=== PATIENT | male | born 1960 | race Caucasian/White ===

== ENCOUNTER 2019-08-05 18:45 | Emergency (ER) | payer OTHER ==
[~2019-08-05] VITALS: Ht 182.8 cm; Wt 84.4 kg
[2019-08-05] MEDS ORDERED: LIDOCAINE 1% INJ 20 ML 20 ML VIAL INJ ONE (19:15)
--- NOTE | 2019-08-05 19:17 | ED Upper Extremity ---
General Chief Complaint: Laceration Stated Complaint: HAND LACERATION Nursing Triage Note: PT. WAS CUTTING A HAM BONE AND HIS KNIFE SLIPPED AND HE NOW HAS A LACERATION ON THE PALM OFTHE LEFT HAND. THIS HAPPENED 6 HOURS AGO. PT. TRIED USING LIQUID SKIN BUT IT DID NOT WORK. SITE IS NOT BLEEDING AT THIS TIME. SITE HAS BEEN CLEANED. Nursing Sepsis Screen: No Definite Risk Source: patient History of Present Illness Date Seen by Provider: Aug 05, 2019 Time Seen by Provider: 19:17 Initial Comments 58-year-old male presenting to the emergency department after having ac cidentally cut into his left hand when he was cutting into a ham bone. He did this around 1 PM today and thought that he could try to manage it at home. He did several things to try to close the wound with a butterfly strips as well as liquid skin. However it kept opening and would not fully close. He finally decided to come to the emergency department. He also has not had a tetanus shot for more than 5 years. He denies any numbness or tingling in his hand. 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 Allergies and Home Medications Allergies Coded Allergies: No Known Drug Allergies (Unverified , 08/05/19) Home Medications Cephalexin 500 Mg Tablet, 500 MG PO TID Prescribed by: PRIETO SAHNI on 08/05/19 5650 Patient Home Medication List Home Medication List Reviewed: Yes Review of Systems Constitutional: No chills, No fever EENTM: no symptoms reported Respiratory: no symptoms reported Cardiovascular: no symptoms reported Gastrointestinal: no symptoms reported Genitourinary: no symptoms reported Musculoskeletal: see HPI Skin: see HPI Psychiatric/Neurological: Denies Numbness, Denies Paresthesia Past Ngurclz-Lrtsky-Cqeasv Hx Past Med/Social Hx: Reviewed Nursing Past Med/Soc Hx Patient Social History Recent Foreign Travel: No Contact w/Someone Who Travel: No Recent Infectious Disease Expo: No Recent Hopitalizations: No Physical Abuse: No Sexual Abuse: No Mistreated: No Fear: No Seasonal Allergies Seasonal Allergies: No Past Medical History Surgeries: No Respiratory: No Cardiac: Yes Hypertension Neurological: No Genitourinary: No Gastrointestinal: No Musculoskeletal: No Endocrine: No HEENT: No Cancer: No Psychosocial: No Integumentary: No Blood Disorders: No Physical Exam Vital Signs Vital Signs - First Documented 08/05/19 18:50 Temp 36.8 Pulse 91 Resp 18 B/P (MAP) 168/88 (114) Pulse Ox 98 O2 Delivery Room Air Capillary Refill : Less Than 3 Seconds Height, Weight, BMI Height: '" Weight: lbs. oz. kg; 25.00 BMI Method: General Appearance: WD/WN, no apparent distress Cardiovascular: normal peripheral pulses Hand: normal ROM, Left, laceration (left palm laceration), soft tissue tenderness (around the laceration) Neurologic/Tendon: normal sensation, normal motor functions, normal tendon functions Neurologic/Psychiatric: alert, normal mood/affect, oriented x 3 Skin: normal color, warm/dry Procedures/Interventions Wound Location: Upper Extremities (left palmar surface of hand) Wound Length (cm): 1.9 Wound's Depth, Shape: sub Q Wound Explored: clean Anesthesia: 1% Lidocaine Volume Anesthetic (ccs): 8 Suture: Ethlion Suture Size: 4-0 Number of Sutures: 7 Layer Closure?: 1 Sterile Dressing Applied?: Yes Progress After obtaining verbal consent from the patient the wound was anesthetized with 1% plain lidocaine. Then using chlorhexidine surgical soap and sterile water the wound was scrubbed and no foreign bodies were seen. The wound was then closed with approximating the wound edges using 4-0 Ethilon. A total of 7 simple interrupted stitches were placed. The patient tolerated this well without any immediate complication. Counseled on follow-up and return precautions. Advised to have the stitches removed in approximately 2 weeks or longer Progress/Results/Core Measures Results/Orders My Orders Orders - PRIETO SAHNI MD Lidocaine 1% Inj 20 Ml (Xylocaine 1% Inj (08/05/19 19:15) Dipht,Pertuss(Acell),Tet Adult (Boostrix (08/05/19 19:30) Cephalexin Capsule (Keflex Capsule) (08/05/19 23:45) Medications Given in ED Current Medications Medications Dose Ordered Sig/Rosa M Route Start Time Stop Time Status Last Admin Dose Admin Cephalexin HCl 500 mg ONCE ONCE PO 08/05/19 23:45 08/05/19 23:46 DC 08/05/19 23:51 500 MG Diphtheria/ Tetanus/Acell Pertussis 0.5 ml ONCE ONCE IM 08/05/19 19:30 08/05/19 19:31 DC 08/05/19 19:37 0.5 ML Lidocaine HCl 20 ml ONCE ONCE INJ 08/05/19 19:15 08/05/19 19:16 DC 08/05/19 19:36 20 ML Vital Signs/I&O 08/05/19 08/05/19 18:50 23:58 Temp 36.8 36.4 Pulse 91 88 Resp 18 16 B/P (MAP) 168/88 (114) 118/76 Pulse Ox 98 98 O2 Delivery Room Air Room Air Blood Pressure Mean: 114 Progress Progress Note : Progress Note Counseled on care and management. Surgical wound with stitches. Advised to take antibiotics since the wound had such a prolonged time of pain open as well as he had tried to close it with multiple things prior to coming to the ER. Departure Impression Primary Impression: Laceration of left palm Qualified Codes: S61.412A - Laceration without foreign body of left hand, initial encounter Disposition: HOME, SELF-CARE Condition: Stable Departure-Patient Inst. Decision time for Depature: 23:45 Referrals: GAYATRI NELSON DO (PCP/Family) Primary Care Physician Patient Instructions: Laceration Repair With Stitches (DC) Add. Discharge Instructions: Keep wound clean and dry for first 24 hours then may wash with soap and water but do not soak it. Apply antibiotic ointment and dressing, especially if you are going to have the wound get dirty. Follow up with clinic and have the stitches removed in about 2 weeks, or be seen sooner if signs of infection All discharge instructions reviewed with patient and/or family. Voiced understanding. Scripts Cephalexin (Cephalexin) 500 Mg Tablet 500 MG PO TID for 7 Days, #20 TAB 0 Refills Prov: PRIETO SAHNI MD 08/05/19 PRIETO SAHNI MD Aug 05, 2019 19:17
[2019-08-05] MEDS ORDERED: TETANUS,DIPTH,PERTUSS P/F (BOOSTRIX) 0.5 ML VIAL IM ONE (19:30)
[2019-08-05] MEDS ORDERED: CEPHALEXIN 250 MG (KEFLEX) CAP PO ONE (23:45)
[2019-08-05] MEDS ORDERED: CEPH500T PO (23:46)
[2019-08-05 23:58] VITALS: BP 118/76
== END 2019-08-05 23:58 | disposition home or self-care (01) ==
LOC: ER FS 18:47
DX: S61.412A Laceration without foreign body of left hand, initial encounter (principal); I10 Essential (primary) hypertension; Z23 Encounter for immunization; W26.0XXA Contact with knife, initial encounter
CPT/HCPCS: 90715

== ENCOUNTER 2021-02-21 18:02 | Emergency (ER) | payer BC ==
[~2021-02-21] VITALS: Ht 182 cm; Wt 85.0 kg
[~2021-02-21 18:02] MED LIST: CEPH500T PO
[2021-02-21 18:08] VITALS: BP 175/107
--- NOTE | 2021-02-21 18:15 | ED Back Pain ---
General Chief Complaint: Back Problems Stated Complaint: BACK PAIN Source of Information: Patient Exam Limitations: No Limitations History of Present Illness Date Seen by Provider: Feb 21, 2021 Time Seen by Provider: 18:10 Initial Comments Back pain for over 1 month since an injury occurred while at work Has seen his PCP- Dr Serrano shortly afterward and was given a "cortisone shot" and some percocet for pain NO history of back problems/ back surgery. Pain located center of low back and without radiation of pain or weakness. Worse w movement and bending Allergies and Home Medications Allergies Coded Allergies: No Known Drug Allergies (Unverified , 08/05/19) Home Medications Cephalexin 500 Mg Tablet, 500 MG PO TID Prescribed by: PRIETO SAHNI on 08/05/19 234 Cyclobenzaprine HCl 10 Mg Tablet, 10 MG PO Q8H PRN for SPASMS Prescribed by: GERALD ROBERTS on 02/21/211828 Prednisone 50 Mg Tab, 50 MG PO DAILY Prescribed by: GERALD ROBERTS on 02/21/211828 Patient Home Medication List Home Medication List Reviewed: Yes Review of Systems Constitutional: No dizziness, No fever, No malaise, No weakness Musculoskeletal: back pain, muscle pain, muscle stiffness; No neck pain Past Krjmcpk-Xndqbs-Ourpdo Hx Patient Social History Tobacco Use?: Yes Seasonal Allergies Seasonal Allergies: No Past Medical History Surgeries: No Respiratory: No Cardiac: Yes Hypertension Neurological: No Genitourinary: No Gastrointestinal: No Musculoskeletal: No Endocrine: No HEENT: No Cancer: No Psychosocial: No Integumentary: No Blood Disorders: No Physical Exam Vital Signs Vital Signs - First Documented 02/21/21 18:08 Temp 36.0 Pulse 82 Resp 20 B/P (MAP) 175/107 (129) Pulse Ox 96 O2 Delivery Room Air Capillary Refill : Height, Weight, BMI Height: '" Weight: lbs. oz. kg; 25.00 BMI Method: General Appearance: No Apparent Distress, WD/WN Cardiovascular: Regular Rate, Rhythm, No JVD Respiratory: Chest Non Tender, Lungs Clear Gastrointestinal: Non Tender, Soft Back: Normal Inspection, No CVA Tenderness, Decreased Range of Motion; No Muscle Spasm; Vertebral Tenderness (midline -interspinous L3-L4), Other (tenderness paraspinal ms- b/l lower lumbar) Extremity: Normal Capillary Refill, Non Tender Neurologic/Psychiatric: Alert, Oriented x3, No Motor/Sensory Deficits, Normal Mood/Affect; No Motor Weakness, No Sensory Deficit Procedures/Interventions Suture Size: 4-0 Progress/Results/Core Measures Results/Orders Vital Signs/I&O 02/21/21 18:08 Temp 36.0 Pulse 82 Resp 20 B/P (MAP) 175/107 (129) Pulse Ox 96 O2 Delivery Room Air Departure Impression Primary Impression: Lumbar sprain Qualified Codes: S33.5XXA - Sprain of ligaments of lumbar spine, initial encounter Disposition: HOME, SELF-CARE Condition: Stable Departure-Patient Inst. Decision time for Depature: 18:28 Referrals: GAYATRI SERRANO DO (PCP/Family) Primary Care Physician Patient Instructions: Back Muscle Strain (DC) Add. Discharge Instructions: See Dr Serrano next week to consider an MRI of your Lumbar spine Consider buying a TENS unit for your back (an electrical stimulation device) All discharge instructions reviewed with patient and/or family. Voiced understanding. Scripts Prednisone (Prednisone) 50 Mg Tab 50 MG PO DAILY, #7 TAB Prov: GERALD ROBERTS DO 02/21/21 Cyclobenzaprine HCl (Cyclobenzaprine HCl) 10 Mg Tablet 10 MG PO Q8H PRN for SPASMS, #20 TAB 0 Refills Prov: GERALD ROBERTS DO 02/21/21 GERALD ROBERTS DO Feb 21, 2021 18:15
[2021-02-21] MEDS ORDERED: CYCL10TA9 PO (18:29)
[2021-02-21] MEDS ORDERED: PRD50T PO (18:29)
== END 2021-02-21 18:36 | disposition home or self-care (01) ==
LOC: EDUNIT# 18:02 → ER FS 18:03
DX: S33.5XXA Sprain of ligaments of lumbar spine, initial encounter (principal); I10 Essential (primary) hypertension; X58.XXXA Exposure to other specified factors, initial encounter; Y99.0 Civilian activity done for income or pay

== ENCOUNTER → 2021-03-08 | Outpatient (CLI) | payer BC ==
[~2021-03-08] MED LIST changes: +CYCL10TA9 PO; +PRD50T PO
--- NOTE | 2021-03-08 17:01 | Diagnostic Imaging Report ---
PROCEDURE: MRI lumbar spine. TECHNIQUE: Multiplanar, multisequence MRI of the lumbar spine was performed without contrast. INDICATION: Low back pain. Acute injury two months ago. COMPARISON: None. FINDINGS: There are five lumbar-type vertebral bodies for the purposes of this report. Normal alignment. Vertebral body heights are preserved. No abnormal signal in the conus which terminates at L1. Normal morphology of the cauda equina. The visualized pelvis and paravertebral soft tissues are unremarkable. L1-L2: Normal. L2-L3: Mild annular disc bulging results in mild left lateral recess narrowing. There is also mild left neuroforaminal narrowing. No spinal canal narrowing. L3-L4: Mild annular disc bulging and ligamentous hypertrophy result in mild bilateral lateral recess and right neuroforaminal narrowing. No spinal canal narrowing. L4-L5: Annular disc bulge with left paracentral disc protrusion, ligamentous hypertrophy, and facet arthropathy result in severe left and moderate right lateral recess narrowing. No spinal canal narrowing. Mild bilateral neuroforaminal narrowing. L5-S1: Annular disc bulge and facet arthropathy result in moderate bilateral lateral recess narrowing. No spinal canal narrowing. Mild bilateral neuroforaminal narrowing. IMPRESSION: 1. Spondylotic changes result in severe left lateral recess narrowing at L4-L5. There is also moderate lateral recess narrowing bilaterally at L5-S1 and on the right at L4-L5. 2. No high-grade spinal canal stenosis. 3. No acute osseous findings. Dictated by: Dictated on workstation # [id number]
== END ==
LOC: RAD 12:44
PROVIDERS: ATTEND Emergency Medicine
DX: M47.816 Spondylosis without myelopathy or radiculopathy, lumbar region (principal); M48.061 Spinal stenosis, lumbar region without neurogenic claudication; M48.07 Spinal stenosis, lumbosacral region; S39.012A Strain of muscle, fascia and tendon of lower back, initial encounter
CPT/HCPCS: 72148

== ENCOUNTER 2021-03-27 16:55 | Emergency (ER) | payer BC ==
[~2021-03-27] VITALS: Ht 182 cm; Wt 80.0 kg
--- NOTE | 2021-03-27 17:19 | ED GU-Male ---
General Chief Complaint: Abdominal/GI Problems Stated Complaint: LLQ PAIN Nursing Triage Note: LEFT SIDED ABD/FLANK PAIN SINCE LAST PM. LAST BM AT 0100. History of Present Illness Date Seen by Provider: Mar 27, 2021 Time Seen by Provider: 17:15 Initial Comments 60-year-old male presents with left flank and left lower quadrant pain beginning last night while at work. Denies injury or trauma, denies previous similar types of pain. Does have a history of chronic back problems. Denies painful urination, frequent urination or blood in his urine. Denies history of kidney stones. Denies change in bowel pattern or habit, denies melena, constipation or diarrhea. Denies weight loss, fever or chills Allergies and Home Medications Allergies Coded Allergies: No Known Drug Allergies (Unverified , 08/05/19) Home Medications Cephalexin 500 Mg Tablet, 500 MG PO TID Prescribed by: PRIETO SAHNI on 08/05/19 2346 Cyclobenzaprine HCl 10 Mg Tablet, 10 MG PO Q8H PRN for SPASMS Prescribed by: GERALD ROBERTS on 02/21/21 182 Hydrocodone/Acetaminophen 1 Each Tablet, 1 EACH PO Q4H Prescribed by: GERALD ROBERTS on 03/27/21 175 Ibuprofen 800 Mg Tablet, 800 MG PO Q8H PRN for PAIN Prescribed by: GERALD ROBERTS on 03/27/21 175 Prednisone 50 Mg Tab, 50 MG PO DAILY Prescribed by: GERALD ROBERTS on 02/21/21 182 Tamsulosin HCl 0.4 Mg Cap, 0.4 MG PO DAILY Prescribed by: GERALD ROBERTS on 03/27/21 175 Patient Home Medication List Home Medication List Reviewed: Yes Review of Systems Review of Systems Constitutional: No fever, No malaise, No weakness Respiratory: no symptoms reported Cardiovascular: no symptoms reported Gastrointestinal: LLQ, abdominal pain; No constipation, No diarrhea, No loss of appetite, No nausea, No vomiting Genitourinary: see HPI; denies burning, denies dysuria, denies frequency; flank pain Musculoskeletal: No back pain, No muscle pain Skin: No change in color, No lesions, No lumps, No rash Past Fsgqubj-Rbosno-Evecsl Hx Patient Social History Tobacco Use?: No Use of E-Cig and/or Vaping dev: No Substance use?: No Alcohol Use?: No Pt feels they are or have been: No Seasonal Allergies Seasonal Allergies: No Past Medical History Surgeries: No Respiratory: No Cardiac: Yes Hypertension Neurological: No Genitourinary: No Gastrointestinal: No Musculoskeletal: No Endocrine: No HEENT: No Cancer: No Psychosocial: No Integumentary: No Blood Disorders: No Physical Exam Vital Signs Vital Signs - First Documented 03/27/21 17:00 Temp 37.2 Pulse 84 Resp 18 B/P (MAP) 146/90 (108) Pulse Ox 97 O2 Delivery Room Air Capillary Refill : Less Than 3 Seconds Height, Weight, BMI Height: '" Weight: lbs. oz. kg; 24.00 BMI Method: General Appearance: WD/WN, no apparent distress Cardiovascular: regular rate, rhythm, no edema Respiratory: chest non-tender, lungs clear, normal breath sounds Gastrointestinal: normal bowel sounds, soft, no organomegaly, no pulsatile mass; No distended, No guarding, No rebound; tenderness (LLQ), other (mild left flank tenderness without CVA TTP) Back: normal inspection, no CVA tenderness, no vertebral tenderness Procedures/Interventions Suture Size: 4-0 Progress/Results/Core Measures Suspected Sepsis SIRS Temperature: Pulse: 84 Respiratory Rate: 18 Laboratory Tests 03/27/21 17:15: White Blood Count 12.7H Blood Pressure 146 /90 Mean: 108 Laboratory Tests 03/27/21 17:15: Creatinine 1.26, Platelet Count 280, Total Bilirubin 0.6 Results/Orders Lab Results Laboratory Tests Test 03/27/21 17:02 03/27/21 17:15 Range/Units Urine Color YELLOW Urine Clarity CLEAR Urine pH 7.5 5-9 Urine Specific Ramona 1.020 1.016-1.022 Urine Protein NEGATIVE NEGATIVE Urine Glucose (UA) NEGATIVE NEGATIVE Urine Ketones NEGATIVE NEGATIVE Urine Nitrite NEGATIVE NEGATIVE Urine Bilirubin NEGATIVE NEGATIVE Urine Urobilinogen 0.2 < = 1.0 MG/DL Urine Leukocyte Esterase NEGATIVE NEGATIVE Urine RBC (Auto) NEGATIVE NEGATIVE Urine RBC 2-5 H /HPF Urine WBC RARE /HPF Urine Crystals NONE /LPF Urine Bacteria NEGATIVE /HPF Urine Casts NONE /LPF Urine Mucus NEGATIVE /LPF Urine Culture Indicated NO White Blood Count 12.7 H 4.3-11.0 10^3/uL Red Blood Count 4.62 4.30-5.52 10^6/uL Hemoglobin 14.3 13.3-17.7 g/dL Hematocrit 41 40-54 % Mean Corpuscular Volume 89 80-99 fL Mean Corpuscular Hemoglobin 31 25-34 pg Mean Corpuscular Hemoglobin Concent 35 32-36 g/dL Red Cell Distribution Width 13.1 10.0-14.5 % Platelet Count 280 130-400 10^3/uL Mean Platelet Volume 9.6 9.0-12.2 fL Immature Granulocyte % (Auto) 0 % Neutrophils (%) (Auto) 81 H 42-75 % Lymphocytes (%) (Auto) 10 L 12-44 % Monocytes (%) (Auto) 7 0-12 % Eosinophils (%) (Auto) 2 0-10 % Basophils (%) (Auto) 1 0-10 % Neutrophils # (Auto) 10.2 H 1.8-7.8 X 10^3 Lymphocytes # (Auto) 1.2 1.0-4.0 X 10^3 Monocytes # (Auto) 0.9 0.0-1.0 X 10^3 Eosinophils # (Auto) 0.3 0.0-0.3 10^3/uL Basophils # (Auto) 0.1 0.0-0.1 10^3/uL Immature Granulocyte # (Auto) 0.0 0.0-0.1 10^3/uL Sodium Level 141 135-145 MMOL/L Potassium Level 4.1 3.6-5.0 MMOL/L Chloride Level 105 98-107 MMOL/L Carbon Dioxide Level 24 21-32 MMOL/L Anion Gap 12 5-14 MMOL/L Blood Urea Nitrogen 22 H 7-18 MG/DL Creatinine 1.26 0.60-1.30 MG/DL Estimat Glomerular Filtration Rate 58 BUN/Creatinine Ratio 17 Glucose Level 133 H 70-105 MG/DL Calcium Level 9.1 8.5-10.1 MG/DL Corrected Calcium 9.0 8.5-10.1 MG/DL Total Bilirubin 0.6 0.1-1.0 MG/DL Aspartate Amino Transf (AST/SGOT) 21 5-34 U/L Alanine Aminotransferase (ALT/SGPT) 26 0-55 U/L Alkaline Phosphatase 85 40-136 U/L Total Protein 6.5 6.4-8.2 GM/DL Albumin 4.1 3.2-4.5 GM/DL My Orders Orders - GERALD ROBERTS DO Ed Iv/Invasive Line Start (03/27/21 17:18) Cbc With Automated Diff (03/27/21 17:18) Comprehensive Metabolic Panel (03/27/21 17:18) Urinalysis (03/27/21 17:18) Ct Abdomen/Pelvis Wo (03/27/21 17:30) Ns Iv 1000 Ml (Sodium Chloride 0.9%) (03/27/21 17:30) Ketorolac Injection (Toradol Injection) (03/27/21 17:30) Ns Iv 1000 Ml (Sodium Chloride 0.9%) (03/27/21 17:40) Ketorolac Injection (Toradol Injection) (03/27/21 17:40) Medications Given in ED Current Medications Medications Dose Ordered Sig/Rosa M Route Start Time Stop Time Status Last Admin Dose Admin Ketorolac Tromethamine 30 mg ONCE ONCE IVP 03/27/21 17:30 03/27/21 17:49 DC 03/27/21 17:41 30 MG Vital Signs/I&O 03/27/21 17:00 Temp 37.2 Pulse 84 Resp 18 B/P (MAP) 146/90 (108) Pulse Ox 97 O2 Delivery Room Air Capillary Refill : Less Than 3 Seconds Blood Pressure Mean: 108 Progress Note : Progress Note feeling a lot better after getting toradol IV discussed CT results, Rx meds, straining urine and f/u w Uro if not improving. Diagnostic Imaging Diagonstic Imaging: CT Comments MPRESSION: 1. 6.6 cm stone in the distal left ureter proximal to the UVJ with secondary moderate left hydroureteronephrosis. There is fat stranding about the left kidney likely reactive with polynephritis not excluded. Other incidental findings as above. Dictated on workstation # [id number] Dict: 03/27/21 1741 Trans: 03/27/21 1749 CV [id number] Interpreted by: HOSSEIN MARTIN MD Electronically signed by: Departure Impression Primary Impression: Ureterolithiasis Disposition: HOME, SELF-CARE Condition: Stable Departure-Patient Inst. Decision time for Depature: 18:04 Referrals: GAYATRI NELSON DO (PCP/Family) Primary Care Physician MARCIA RASMUSSEN MD Patient Instructions: How to Strain Your Urine, Kidney Stone Diet, Kidney Stones (DC) Add. Discharge Instructions: Call Dr Rasmussen if you are not getting any relief in 1 to 2 days. Take the medications as prescribed. Follow up in the ER if pain becomes intolerable Strain your urine to identify the stone and take it to your doctor in a zip lock All discharge instructions reviewed with patient and/or family. Voiced understanding. Scripts Hydrocodone/Acetaminophen (Hydrocodone-Acetamin 5-325 mg) 1 Each Tablet 1 EACH PO Q4H for Abdominal Pain, #20 TAB Prov: GERALD ROBERTS DO 03/27/21 Ibuprofen (Ibuprofen) 800 Mg Tablet 800 MG PO Q8H PRN for PAIN, #30 TAB 0 Refills Prov: GERALD ROBERTS DO 03/27/21 Tamsulosin HCl (Flomax) 0.4 Mg Cap 0.4 MG PO DAILY, #7 CAP Prov: GERALD ROBERTS DO 03/27/21 GERALD ROBERTS DO Mar 27, 2021 17:19
[2021-03-27] MEDS ORDERED: NS IV 1000 ML 1,000 ML IV SCH (17:30)
[2021-03-27] MEDS ORDERED: KETOROLAC 30 MG/ML VIAL IVP ONE (17:30)
[2021-03-27 17:33] LABS: BILIRUBIN,URINE NEGATIVE (NEGATIVE); CLARITY,URINE CLEAR; COLOR,URINE YELLOW; GLUCOSE, URINE (UA) NEGATIVE (NEGATIVE); KETONES,URINE NEGATIVE (NEGATIVE); LEUKOCYTE ESTERASE ,URINE NEGATIVE (NEGATIVE); NITRITE,URINE NEGATIVE (NEGATIVE); PH,URINE 7.5 (5-9); PROTEIN,URINE NEGATIVE (NEGATIVE)
[2021-03-27 17:40] LABS: BACTERIA,URINE NEGATIVE /HPF; WBC,URINE RARE /HPF
[2021-03-27] MEDS ORDERED: NS IV 1000 ML 1,000 ML ONE (17:40)
[2021-03-27] MEDS ORDERED: KETOROLAC 30 MG/ML VIAL ONE (17:40)
[2021-03-27 17:41] LABS: BASOPHILS % (AUTO) 1 % (0-10); EOSINOPHILS % (AUTO) 2 % (0-10); HEMATOCRIT 41 % (40-54); HEMOGLOBIN 14.3 g/dL (13.3-17.7); LYMPHOCYTES % (AUTO) 10 % (12-44); MEAN CORPUSCULAR HEMOGLOBIN 31 pg (25-34); MEAN CORPUSCULAR HGB CONC 35 g/dL (32-36); MEAN CORPUSCULAR VOLUME 89 fL (80-99); MEAN PLATELET VOLUME 9.6 fL (9.0-12.2); MONOCYTES % (AUTO) 7 % (0-12); NEUTROPHILS % (AUTO) 81 % (42-75); PLATELET COUNT 280 10^3/uL (130-400); WHITE BLOOD COUNT 12.7 10^3/uL (4.3-11.0)
[2021-03-27 17:42] LABS: BASOPHILS # (AUTO) 0.1 10^3/uL (0.0-0.1); EOSINOPHILS # (AUTO) 0.3 10^3/uL (0.0-0.3); LYMPHOCYTES # (AUTO) 1.2 X 10^3 (1.0-4.0); MONOCYTES # (AUTO) 0.9 X 10^3 (0.0-1.0); NEUTROPHILS # (AUTO) 10.2 X 10^3 (1.8-7.8)
--- NOTE | 2021-03-27 17:51 | Diagnostic Imaging Report ---
PROCEDURE: CT abdomen and pelvis without contrast. TECHNIQUE: Multiple contiguous axial images were obtained through the abdomen and pelvis without the use of intravenous contrast. Auto Exposure Controls were utilized during the CT exam to meet ALARA standards for radiation dose reduction. INDICATION: Left flank and left lower quadrant pain since last night. EXAMINATION: CT abdomen and pelvis without contrast 03/27/2021 FINDINGS: There is linear atelectasis at the left lung base. There is a small hiatal hernia. The nonopacified abdominal viscera limited in evaluation due to the lack of contrast with no acute abnormality appreciated in the liver, spleen, gallbladder, pancreas or adrenal glands. The right kidney is unremarkable. There is fat stranding about the left kidney. There is moderate left hydroureteronephrosis. There is a 6.6 mm stone in the distal left ureter proximal to the UVJ. No stones appreciated within the right ureter. There are appendicoliths throughout the appendix without surrounding inflammatory change. Remaining loops of bowel appear unremarkable. There is no ascites or free air. There is a left-sided fat-containing inguinal hernia. Fat-containing umbilical hernia also noted. There is diffuse atherosclerotic disease. There is no acute osseous abnormality. IMPRESSION: 1. 6.6 cm stone in the distal left ureter proximal to the UVJ with secondary moderate left hydroureteronephrosis. There is fat stranding about the left kidney likely reactive with polynephritis not excluded. Other incidental findings as above. Dictated by: Dictated on workstation # [id number]
[2021-03-27] MEDS ORDERED: TMSL.4C PO (17:57)
[2021-03-27] MEDS ORDERED: ACHD5005 PO (17:57)
[2021-03-27] MEDS ORDERED: IBUP-1780 PO (17:57)
[2021-03-27 18:01] LABS: BILIRUBIN,TOTAL 0.6 MG/DL (0.1-1.0); CALCIUM 9.1 MG/DL (8.5-10.1); CREATININE SERUM 1.26 MG/DL (0.60-1.30); POTASSIUM 4.1 MMOL/L (3.6-5.0)
[2021-03-27 18:02] LABS: ALBUMIN 4.1 GM/DL (3.2-4.5); TOTAL PROTEIN 6.5 GM/DL (6.4-8.2)
[2021-03-27 18:07] VITALS: BP 138/89
== END 2021-03-27 18:08 | disposition home or self-care (01) ==
LOC: EDUNIT# 16:55 → ER FS 16:57
DX: N13.2 Hydronephrosis with renal and ureteral calculous obstruction (principal); I10 Essential (primary) hypertension; Z79.52 Long term (current) use of systemic steroids
CPT/HCPCS: 36415; 74176; 80053; 81000; 85025